=== PATIENT | female | born 1975 | race Caucasian/White ===

== ENCOUNTER 2020-08-03 18:53 | Emergency (ER) | payer OTHER ==
[~2020-08-03] VITALS: Ht 175.3 cm; Wt 74.8 kg
[~2020-08-03 18:53] MED LIST: IBUPROFEN 600600 M1 PO; NORCO 5-325 TA1 EACH PO; XANAX XR1 MG PO; ZOFRAN ODT4 MG PO; ZOLOFT100 MG PO
[2020-08-03] MEDS ORDERED: ADDERALL XR 1515 MG PO (19:12)
[2020-08-03] MEDS ORDERED: PROZAC20 MG PO (19:12)
[2020-08-03] MEDS ORDERED: ATIVAN1 M1 PO (20:43)
[2020-08-03 21:21] VITALS: BP 134/80
== END 2020-08-03 21:23 | disposition home or self-care (01) ==
LOC: ER 18:53
DX: S22.32XA Fracture of one rib, left side, initial encounter for closed fracture (principal); F41.9 Anxiety disorder, unspecified; R06.02 Shortness of breath; R25.2 Cramp and spasm; R42 Dizziness and giddiness; F32.9 Major depressive disorder, single episode, unspecified; F17.210 Nicotine dependence, cigarettes, uncomplicated; Z79.899 Other long term (current) drug therapy; W00.0XXA Fall on same level due to ice and snow, initial encounter; Y93.89 Activity, other specified; Y92.89 Other specified places as the place of occurrence of the external cause; Y99.8 Other external cause status